=== PATIENT | male | born 1980 | race Caucasian/White ===

== ENCOUNTER 2021-08-25 15:22 | Emergency (ER) | payer SELFPAY ==
[2021-08-25] MEDS ORDERED: MORPHINE 4 MG/1 ML INJ IV ONE ×2 (16:16→19:09)
[2021-08-25] MEDS ORDERED: KETOROLAC 30 MG/1 ML INJ IV ONE (16:16)
[2021-08-25] MEDS ORDERED: TETANUS,DIPH,PERTUSS(ACELL) VACCINE 0.5 ML SYRINGE IM ONE (16:16)
[2021-08-25] MEDS ORDERED: ONDANSETRON 4 MG/2 ML INJ IV ONE (16:16)
--- NOTE | 2021-08-25 16:20 | Emergency Department Report ---
ED Upper Extremity Inj HPI - General Chief Complaint: Extremity Injury, Upper Stated Complaint: LT WRIST INJURY Time Seen by Provider: 08/25/21 16:08 Source: patient Mode of arrival: Ambulatory Limitations: Language Barrier - History of Present Illness Initial Comments: 41-year-old [place] Islander-speaking male presents to the hospital complaining of left wrist pain after falling off of a 6 foot scaphoid and landing on his left wrist. Patient is right-hand dominant. He was seen at an urgent care prior to ED arrival and was told that his wrist was dislocated and fractured he need to come to the ER. Complains 8/10 pain that is constant and worse with palpation. Patient presents in a wrist splint. He has abrasions to his knuckles with minimal bleeding and has not had a tetanus shot in 10 years. Patient denies other injury or pain. Patient does admit to alcohol and cocaine use with last use last night. Denies any drug use today - Related Data Previous Rx's Medication Instructions Recorded Last Taken Type HYDROcodone/APAP 5-325 [[place] 1 each PO Q6HR PRN #15 tablet 08/25/21 Unknown Rx 5/325] Ibuprofen [Motrin] 800 mg PO Q8HR PRN #20 tablet 08/25/21 Unknown Rx Allergies Allergy/AdvReac Type Severity Reaction Status Date / Time No Known Allergies Allergy Unverified 08/25/21 16:16 ED Review of Systems ROS: Stated complaint: LT WRIST INJURY Other details as noted in HPI Comment: All other systems reviewed and negative ED Past Medical Hx - Past Medical History Previous Medical History?: No - Medications Home Medications: Home Medications Medication Instructions Recorded Confirmed Last Taken Type HYDROcodone/APAP 5-325 [[place] 1 each PO Q6HR PRN #15 tablet 08/25/21 Unknown Rx 5/325] Ibuprofen [Motrin] 800 mg PO Q8HR PRN #20 tablet 08/25/21 Unknown Rx ED Physical Exam - General Limitations: Language Barrier - Other Other exam information: General: No acute distress Head: Atraumatic Eyes: normal appearance ENT: Moist mucous membranes Neck: Normal appearance, no midline tenderness Chest: Clear to auscultation bilaterally CV: Regular rate and rhythm Abdomen: Soft, normal bowel sounds, nontender, nondistended, no rebound or guarding Back: Normal inspection Extremity: Abrasions to the knuckles of the left hand with minimal bleeding, left wrist deformity with pain Neuro: Alert O x 3, no facial asymmetry, speech clear, no gross motor sensory deficit Psych: Appropriate behavior Skin: No rash ED Course Vital Signs 08/25/21 08/25/21 08/25/21 15:36 16:30 17:07 Temperature 98.4 F Temperature [ Pre-Procedure] Pulse Rate 71 85 Pulse Rate [Pre -Procedure] Respiratory 20 18 18 Rate Respiratory Rate [Pre- Procedure] Blood Pressure Blood Pressure [Pre-Procedure] Blood Pressure 158/82 171/94 [Right] O2 Sat by Pulse 99 100 99 Oximetry 08/25/21 08/25/21 08/25/21 18:37 18:38 18:39 Temperature Temperature [ 98 F Pre-Procedure] Pulse Rate Pulse Rate [Pre 85 85 65 -Procedure] Respiratory Rate Respiratory 17 17 18 Rate [Pre- Procedure] Blood Pressure Blood Pressure 156/67 151/100 158/87 [Pre-Procedure] Blood Pressure [Right] O2 Sat by Pulse Oximetry 08/25/21 08/25/21 08/25/21 19:05 19:42 19:45 Temperature Temperature [ Pre-Procedure] Pulse Rate 87 64 61 Pulse Rate [Pre -Procedure] Respiratory 18 13 16 Rate Respiratory Rate [Pre- Procedure] Blood Pressure 139/74 Blood Pressure [Pre-Procedure] Blood Pressure 156/62 [Right] O2 Sat by Pulse 99 98 98 Oximetry - Consultations Consultation #1: 08/25/21 19: [address] Cardenas on-call orthopedic surgeon. He evaluated the pre and postreduction films of the wrist. He states as long as patient is neurovascularly intact that he may follow-up in the office for possible surgical treatment of persistent dislocation - Moderate Sedation Indications: fracture/dislocation redu ASA Class: I Mallampati Airway Score: 1 Time of Last PO Intake: 08:00 Preparation: classroom monitor applied, pulse oximeter, capnometry used, supplemental O2 applied, suction/airway equipment at bedside, IV secured Ketamine: IV Ketamine Dose: 40 IV Propofol Dose (mgs): 60 Complications: none Interventions: oxygen applied Patient Tolerated Procedure: well Additional Comments: Procedure start time 18: 39 stop time 18:45 - Orthopedic Joint Reduction Joint #1 Consent Obtained: written consent Time Out Performed: Yes Side: left Joint Reduction Location: wrist Analgesia: moderate sedation Shoulder Technique Used (if applicable): traction/counter-traction Technique Used: direct manipulation Post-Reduction Neuro Exam: intact Post-Reduction Vascular Exam: intact Post Reduction X-Ray Obtained: Yes Post Reduction X-Ray Results: other (fracture reduced, dislocation presists) Splint Applied: Yes (sugartong and sling) Patient Tolerated Procedure: well ED Medical Decision Making - Radiology Data Radiology results: report reviewed LEFT WRIST 3 VIEWS INDICATION / CLINICAL INFORMATION: Fall with left wrist pain and deformity. COMPARISON: None available. FINDINGS: BONES / JOINT(S): There is an acute comminuted fracture of the distal radius involving the radial styloid. There is also a mildly displaced fracture of the base of the ulnar styloid. There is posterior dislocation of the carpal bones in relationship to the distal radius with associated foreshortening. There also may be dislocation of the ulna posteriorly in relationship to the radius at the distal radioulnar joint. SOFT TISSUES: There is mild associated soft tissue swelling. ADDITIONAL FINDINGS: None. IMPRESSION: Acute fracture/dislocation of the left wrist. LEFT WRIST 3 VIEWS INDICATION / CLINICAL INFORMATION: Postreduction. COMPARISON: Earlier today. FINDINGS: Posterior displacement of the carpus in relationship to the distal radius has not changed significantly post reduction. Alignment of the displaced radial styloid fracture has improved. IMPRESSION: Persistent posterior dislocation of the carpus in relationship to the distal radius. - Medical Decision Making 41-year-old male presents to the hospital left fracture/dislocation. Conscious sedation provided with adequate reduction of fracture segments however, radius dislocation persists. Pre and postreduction images reviewed by on-call orthopedic surgeon states that it is adequate and he may follow up in the office. He Is neurovascularly intact and denies numbness, pain, and has movement of his fingers with cap refill less than 2 seconds after splint application. Cap refill less than 2 seconds Critical Care Time: No Critical care attestation.: If time is entered above; I have spent that time in minutes in the direct care of this critically ill patient, excluding procedure time. ED Disposition Clinical Impression: Left wrist fracture, Left wrist dislocation Disposition: 01 HOME / SELF CARE / HOMELESS Is pt being admited?: No Does the pt Need Aspirin: No Condition: Stable Instructions: Wrist Fracture Treated With Immobilization, Moderate Conscious Sedation, Adult, Care After Additional Instructions: Take the medication as prescribed. Follow-up with your doctor or doctor/clinic provided. Return if symptoms worsen as indicated by your discharge instructions. Prescriptions: Ibuprofen [Motrin] 800 mg PO Q8HR PRN #20 tablet PRN Reason: Pain , Severe (7-10) HYDROcodone/APAP 5-325 [[place] 5/325] 1 each PO Q6HR PRN #15 tablet PRN Reason: Pain Referrals: SONNY CARDENAS MD [Staff Physician] - 3-5 Days Time of Disposition: 20:23 Print Language: LATVIAN
--- NOTE | 2021-08-25 17:07 | XRay Report ---
LEFT WRIST 3 VIEWS INDICATION / CLINICAL INFORMATION: Fall with left wrist pain and deformity. COMPARISON: None available. FINDINGS: BONES / JOINT(S): There is an acute comminuted fracture of the distal radius involving the radial sty loid. There is also a mildly displaced fracture of the base of the ulnar styloid. There is posterior dislocation of the carpal bones in relationship to the distal radius with associated foreshortening. There also may be dislocation of the ulna posteriorly in relationship to the radius at the distal rad ioulnar joint. SOFT TISSUES: There is mild associated soft tissue swelling. ADDITIONAL FINDINGS: None. IMPRESSION: Acute fracture/dislocation of the left wrist. Signer Name: Xavi Velasquez MD Signed: 08/25/2021 5:02 PM Workstation Name: [id number]
[2021-08-25] MEDS ORDERED: KETAMINE 500 MG/5 ML VIAL MDV IV ONE (17:41)
[2021-08-25] MEDS ORDERED: propofoL 200 MG/20 ML VIAL IV ONE (17:41)
--- NOTE | 2021-08-25 19:30 | XRay Report ---
LEFT WRIST 3 VIEWS INDICATION / CLINICAL INFORMATION: Postreduction. COMPARISON: Earlier today. FINDINGS: Posterior displacement of the carpus in relationship to the distal radius has not changed significant ly post reduction. Alignment of the displaced radial styloid fracture has improved. IMPRESSION: Persistent posterior dislocation of the carpus in relationship to the distal radius. Signer Name: Xavi Velasquez MD Signed: 08/25/2021 7:26 PM Workstation Name: [id number]
[2021-08-25 20:51] VITALS: BP 160/86
== END 2021-08-25 21:18 | disposition home or self-care (01) ==
LOC: ED 15:22
PROC: 0RSPXZZ Reposition Left Wrist Joint, External Approach (ICD-10-PCS; principal; 2021-08-25)
DX: S62.102A Fracture of unspecified carpal bone, left wrist, initial encounter for closed fracture (principal); S63.005A Unspecified dislocation of left wrist and hand, initial encounter; W19.XXXA Unspecified fall, initial encounter; Y93.89 Activity, other specified; Y92.89 Other specified places as the place of occurrence of the external cause; Y99.8 Other external cause status
CPT/HCPCS: 25675; 73110; 90471; 90715; 96374; 96375; 96376; 99283; J1885; J2270; J2405; J2704; J3490

== ENCOUNTER 2021-09-08 09:56 | Day surgery (SDC) | payer OTHER ==
[~2021-09-08 09:56] MED LIST: ceFAZolin/STERILE WATER 2 GM/20 ML SYRINGE IV SCH
[2021-09-08] MEDS ORDERED: ONDANSETRON 4 MG/2 ML INJ IV PRN (10:49)
[2021-09-08] MEDS ORDERED: fentaNYL 100 MCG/2 ML INJ IV ONE (10:49)
[2021-09-08] MEDS ORDERED: HYDROmorphone 0.5 MG/0.5 ML INJ IV PRN ×2 (10:49)
--- NOTE | 2021-09-08 10:50 | Anesthesia Day of Surgery ---
Anesthesia Day of Surgery - Day of Surgery Patient Examined: Yes Patient H&P Reviewed: Yes Patient is NPO: Yes
--- NOTE | 2021-09-08 10:51 | Anesthesia Consultation ---
Anesthesia Consult and Med Hx Date of service: 09/08/21 - Airway Anesthetic Teeth Evaluation: Good ROM Head & Neck: Adequate Mental/Hyoid Distance: Adequate Mallampati Class: Class I Intubation Access Assessment: Good - Pre-Operative Health Status ASA Pre-Surgery Classification: ASA2 Proposed Anesthetic Plan: General Nerve Block: IS - Pulmonary Hx Smoking: Yes (1 PACK CIGARETTES/DAY) - Central Nervous System Hx Psychiatric Problems: No - Hematic Hx Sickle Cell Disease: No - Other Systems Hx Alcohol Use: Yes (EVERYDAY) Hx Substance Use: Yes (COCAINE) Hx Cancer: No Hx Obesity: No
[2021-09-08] MEDS ORDERED: BUPIVACAINE/PF (0.5%) 5 MG/1 ML 30 ML VIAL INFILTRATI ONE (10:56)
[2021-09-08] MEDS ORDERED: dexAMETHasone 4 MG/ML VIAL ONE (10:56)
[2021-09-08] MEDS ORDERED: LACTATED RINGERS 1,000 ML IV SCH (11:00)
[2021-09-08] MEDS ORDERED: MIDAZOLAM 2 MG/2 ML INJ IV NR (11:00)
[2021-09-08] MEDS ORDERED: dexAMETHasone 20 MG/5 ML VIAL ONE (12:57)
[2021-09-08] MEDS ORDERED: ONDANSETRON 4 MG/2 ML INJ ONE (12:57)
[2021-09-08] MEDS ORDERED: fentaNYL 100 MCG/2 ML INJ ONE (12:57)
[2021-09-08] MEDS ORDERED: propofoL 200 MG/20 ML VIAL IV ONE (12:58)
[2021-09-08] MEDS ORDERED: ePHEDrine SULFATE 50 MG/1 ML INJ ONE (12:58)
[2021-09-08] MEDS ORDERED: SODIUM CHLORIDE 0.9% IRR 1,500 ML BOTTLE IR ONE (13:38)
--- NOTE | 2021-09-08 14:30 | Procedure Note ---
Date of procedure: 09/08/21 Pre-op diagnosis: radiocarpal dislocation left wrist Post-op diagnosis: same Procedure: Closed reduction insertion of K wires left wrist Procedure The patient was brought to the OR and placed on the OR table in the supine position following induction with MAC anesthesia the patient's left upper extremity was prepped and draped in the usual sterile manner a timeout procedure was done to identify the patient and the correct operative site next the arm was exsanguinated followed by inflation of the pneumatic tourniquet to 250 mmHg using C arm visualization the wrist was then grasped patient was noted to have fairly unstable radiocarpal joint with the wrist in maximum dorsiflexion I was able to reduce the dislocation however on extension dorsiflexion the articulation subluxed next using C arm visualization a smooth K wire was inserted along the scaphoid and with the wrist in maximum flexion the K wire was advanced into the distal radius and proximal and ulnar Next the wrist was brought into extension and the joint appeared stable AP and lateral views were obtained showing good reduction a second K wire was then inserted parallel again under C-arm visualization following this the wires were then cut just about a centimeter from the skin. Skin protectors were applied to the K wire as well as Xeroform gauze a short arm splint was applied the patient tolerated the procedure there were no complications he was then taken to postanesthesia r ecovery in stable condition Anesthesia: MAC Surgeon: SONNY RAMIREZ (David Jean-Baptiste, 1st assist) Estimated blood loss: minimal Pathology: none Condition: stable Disposition: PACU
--- NOTE | 2021-09-08 15:19 | XRay Report ---
2 fluoroscopic images submitted Indication: Intraoperative localization Impression: 2 images of the left wrist were submitted for documentation purposes with radiology invo lvement. Please refer to the operative note for complete details. Fluoroscopic time: 1.4 minutes Signer Name: Magdiel Jha MD Signed: 09/08/2021 3:14 PM Workstation Name: [id number]
[2021-09-08 17:06] VITALS: BP 120/85
--- NOTE | 2021-09-08 17:51 | Post Anesthesia Evaluation ---
- Post Anesthesia Evaluation Patient Participated: Yes Airway Patent: Yes Stable Respiratory Function: Yes Nausea/Vomiting: No Temp > 96.8F: Yes Pain Manageable: Yes Adequeate Hydration: Yes Anesthesia Complications: No Block Receding Appropriately: Yes Patient on Ventilator: No
== END 2021-09-08 15:00 | disposition home or self-care (01) ==
LOC: OR 09:56
PROVIDERS: ATTEND Orthopaedic Surgery
DX: S63.025A Dislocation of radiocarpal joint of left wrist, initial encounter (principal); F17.210 Nicotine dependence, cigarettes, uncomplicated; Z79.899 Other long term (current) drug therapy; Z72.89 Other problems related to lifestyle; Z98.890 Other specified postprocedural states; X58.XXXA Exposure to other specified factors, initial encounter; Y93.89 Activity, other specified; Y92.89 Other specified places as the place of occurrence of the external cause; Y99.8 Other external cause status
CPT/HCPCS: 25660; 64417; 73100; J0690; J1100; J2250; J2405; J2704; J3010; J3490; J7120; 64450